=== PATIENT | male | born 1950 | race Caucasian/White ===

== ENCOUNTER 2016-11-08 09:22 | Emergency (ER) | payer MEDICARE, OTHER ==
[2016-11-08] MEDS ORDERED: NITROGLYCERIN 0.4 MG TAB SL PRN (09:25)
[2016-11-08] MEDS ORDERED: SODIUM CHLORIDE 0.9% FLUSH 10 ML SOL IV PRN (09:25)
[2016-11-08] MEDS ORDERED: ASPIRIN 81 MG CHEWABLE CTB PO STA (09:25)
[2016-11-08] MEDS ORDERED: ASPIRIN 81 MG CHEWABLE CTB ONE (09:26)
[2016-11-08 09:41] LABS: BASOPHILS % (AUTO) 1 % (0-3); EOSINOPHILS % (AUTO) 3 % (0-9); HEMATOCRIT 42 % (39-53); MEAN CORPUSCULAR HGB CONC 36.2 gm/dl (32.0-36.0); MEAN CORPUSCULAR VOLUME 89 fL (80-100); MONOCYTES % (AUTO) 7.4 % (0-12); NEUTROPHILS % (AUTO) 51.5 % (37-80)
[2016-11-08 09:50] VITALS: TEMP 97.8; O2SAT 97
[2016-11-08 09:52] LABS: CALCIUM 8.3 mg/dl (8.5-10.1); GLOM FILT RATE 75 mL/min (>60); POTASSIUM 4.2 mMol/L (3.5-5.1); SODIUM 141 mMol/L (136-145)
[2016-11-08] MEDS ORDERED: DILTIAZEM 5 MG/ML SOL IV ONE ×2 (10:00→10:03)
[2016-11-08 12:23] VITALS: BP 124/66; PULSE 65; RESP 14
== END 2016-11-08 10:56 | disposition home or self-care (01) | DRG 310 ==
LOC: ED 09:22
DX: I48.0 Paroxysmal atrial fibrillation (principal)
CPT/HCPCS: 36415; 71010; 80048; 82550; 84484; 85025; 85610; 85730; 93005; 99285

== ENCOUNTER 2017-02-08 08:29 | Day surgery (SDC) | payer OTHER ==
[~2017-02-08 08:29] MED LIST: LIDOCAINE HCL 1% MPF SOL ONE; PROPOFOL 500 MG/50 ML EMU IV ONE
[2017-02-08 10:43] VITALS: BP 119/71; PULSE 71; RESP 20; TEMP 96.8; O2SAT 96
== END 2017-02-08 10:53 | disposition home or self-care (01) | DRG 951 ==
LOC: SURG 08:29
PROVIDERS: ATTEND Surgery
DX: Z12.11 Encounter for screening for malignant neoplasm of colon (principal); E11.9 Type 2 diabetes mellitus without complications; K62.1 Rectal polyp
CPT/HCPCS: J2001; J2704